=== PATIENT | female | born 1975 | race Hispanic/Latino ===

== ENCOUNTER 2017-07-10 15:43 | Emergency (ER) | payer MEDICAID ==
[2017-07-10] MEDS ORDERED: LIDOCAINE HCL 1% 20 ML VIAL ONE (16:21)
[2017-07-10 16:38] LABS: APPEARANCE,URINE Clear (CLEAR); BILIRUBIN,URINE Negative (NEGATIVE); COLOR,URINE Yellow (YELLOW); GLUCOSE, URINE (UA) Negative (NEGATIVE); KETONES,URINE Trace mg/dL (NEGATIVE); LEUKOCYTE ESTERASE ,URINE Small (NEGATIVE); NITRATE,URINE Negative (NEGATIVE); OCCULT BLOOD,URINE Negative (NEGATIVE); PH,URINE 7.5 (5.0-8.0); PROTEIN,URINE Negative (NEGATIVE)
[2017-07-10 16:39] LABS: HCG,QUAL RESULT NEGATIVE (NEGATIVE)
[2017-07-10] MEDS ORDERED: ACETAMINOPHEN-CODEINE 300/30MG TAB ONE (16:41)
[2017-07-10 16:48] LABS: BACTERIA,URINE None Seen /HPF (None Seen); RBC,URINE None Seen /HPF (0-1); WBC,URINE 0-1 /HPF (0-1)
== END 2017-07-10 16:56 | disposition home or self-care (01) ==
LOC: EDH 15:43
DX: N76.4 Abscess of vulva (principal); B37.9 Candidiasis, unspecified; G89.29 Other chronic pain; M54.9 Dorsalgia, unspecified
CPT/HCPCS: 56405; 81001; 81025

== ENCOUNTER 2018-02-24 16:03 | Emergency (ER) | payer MEDICAID ==
[2018-02-24] MEDS ORDERED: IBUPROFEN 400 MG TABLET ONE (17:30)
== END 2018-02-24 18:01 | disposition home or self-care (01) ==
LOC: EDH 16:03
DX: T25.12 Burn of first degree of foot (principal); T31.0 Burns involving less than 10% of body surface; X10.2XXD Contact with fats and cooking oils, subsequent encounter; Z87.891 Personal history of nicotine dependence

== ENCOUNTER 2018-03-05 14:20 | Emergency (ER) | payer MEDICAID ==
[2018-03-05] MEDS ORDERED: KETOROLAC TROMETHAMINE 30MG/ML ONE (15:51)
== END 2018-03-05 15:58 | disposition home or self-care (01) ==
LOC: EDH 14:20
DX: M25.552 Pain in left hip (principal); M54.2 Cervicalgia; R51 Headache; M54.5 Low back pain; G89.29 Other chronic pain; Z79.899 Other long term (current) drug therapy; V49.88XA Car occupant (driver) (passenger) injured in other specified transport accidents, initial encounter; Y93.89 Activity, other specified; Y92.89 Other specified places as the place of occurrence of the external cause; Y99.8 Other external cause status
CPT/HCPCS: 70450; 72125; 73502; 96372; 99284; J1885

== ENCOUNTER 2019-02-15 06:30 | Day surgery (SDC) | payer MEDICAID ==
[2019-02-14 12:02] VITALS: BP 103/63
[2019-02-14 12:07] LABS: BASOPHILS % (AUTO) 0.7 % (0.0-5.0); EOSINOPHILS % (AUTO) 1.6 % (0.0-8.0); HEMATOCRIT 41.9 % (36-48); LYMPHOCYTES % (AUTO) 23.3 % (21.0-51.0); MEAN CORPUSCULAR HEMOGLOBIN 30.8 pg (27.0-33.0); MEAN CORPUSCULAR HGB CONC 33.6 g/dL (32.0-36.0); MEAN CORPUSCULAR VOLUME 91.6 fL (79-99); MONOCYTES % (AUTO) 7.8 % (3.0-13.0); NEUTROPHILS % (AUTO) 66.6 % (40.0-77.0); NUCLEATED RED BLOOD CELLS 0.1 % (0.0-0.19); PLATELET COUNT (AUTO) 348 K/uL (130-400); RED BLOOD CELL COUNT(AUTO) 4.57 MIL/uL (4.00-5.50); RED CELL DISTRIBUTION WIDTH 13.6 % (11.0-15.5); WHITE BLOOD COUNT (AUTO) 6.7 K/uL (4.8-10.8)
[~2019-02-15] VITALS: Ht 151.1 cm; Wt 49.5 kg
[2019-02-15] VITALS (21 sets, daily range): BP systolic 101–144; BP diastolic 57–75
[~2019-02-15 06:30] MED LIST: CARB200T PO
[2019-02-15] MEDS: LACTATED RINGERS 1000ML 1,000 ML IV SCH ×2 (07:17→09:25)
[2019-02-15] MEDS ORDERED: ACETIC ACID 0.25% 1,000 ML IRRIG.SOLN ONE (07:21)
[2019-02-15] MEDS ORDERED: STRONG IODINE SOLN 14ML BOTTLE ONE (07:22)
[2019-02-15] MEDS ORDERED: LIDOCAINE HCL MPF 1% 5ML VIAL ONE (08:08)
[2019-02-15] MEDS ORDERED: SUCCINYLCHOLINE 200MG/10ML SYR ONE (08:08)
[2019-02-15] MEDS ORDERED: MIDAZOLAM HCL 1 MG/ML 2ML VIAL ONE (08:09)
[2019-02-15] MEDS ORDERED: PROPOFOL 10 MG/ML 20ML VIAL IV ONE (08:09)
[2019-02-15] MEDS ORDERED: MEPERIDINE-PF 25 MG/ML SYG ONE ×3 (08:10→10:26)
[2019-02-15] MEDS ORDERED: ROCURONIUM 10MG/1ML SYR 10 MG/ML ML ONE (08:10)
[2019-02-15] MEDS ORDERED: ONDANSETRON HCL 4 MG/2 ML VIAL ONE (08:42)
[2019-02-15] MEDS ORDERED: EPHEDRINE SULFATE 50 MG/ML AMPULE ONE (08:42)
[2019-02-15] MEDS ORDERED: MORPHINE SULFATE 4 MG/1ML SYG ONE (09:31)
== END 2019-02-15 12:36 | disposition home or self-care (01) ==
LOC: DAH 06:30
PROVIDERS: ATTEND Obstetrics & Gynecology
DX: R87.613 High grade squamous intraepithelial lesion on cytologic smear of cervix (HGSIL) (principal); K21.9 Gastro-esophageal reflux disease without esophagitis; Z90.49 Acquired absence of other specified parts of digestive tract; Z98.890 Other specified postprocedural states; Z79.899 Other long term (current) drug therapy; Z82.49 Family history of ischemic heart disease and other diseases of the circulatory system; Z82.5 Family history of asthma and other chronic lower respiratory diseases
CPT/HCPCS: 36415; 57522; 85025; 86850; 86900; 86901; 88307; A4215; A4221; A4222; A4223; A4606; A4663; A4930; A6260; J0330; J2175 ×3; J2250; J2270; J2405; J2704; J3490 ×2; J7120

== ENCOUNTER 2019-03-18 17:21 | Inpatient (IN) | payer MEDICAID ==
[~2019-03-18] VITALS: Ht 148.6 cm; Wt 48.3 kg
[2019-03-18] MEDS ORDERED: ONDANSETRON HCL 4 MG/2 ML VIAL ONE (17:46)
[2019-03-18] MEDS ORDERED: KETOROLAC TROMETHAMINE 30MG/ML ONE (17:46)
[2019-03-18] MEDS ORDERED: SODIUM CHLORIDE 0.9% 1000ML 1,000 ML IV ONE (17:47)
[2019-03-18 17:56] LABS: BASOPHILS % (AUTO) 0.2 % (0.0-5.0); EOSINOPHILS % (AUTO) 0.2 % (0.0-8.0); HEMATOCRIT 39.2 % (36-48); MEAN CORPUSCULAR HEMOGLOBIN 30.9 pg (27.0-33.0); MEAN CORPUSCULAR HGB CONC 34.3 g/dL (32.0-36.0); MEAN CORPUSCULAR VOLUME 90.1 fL (79-99); MONOCYTES % (AUTO) 4.6 % (3.0-13.0); PLATELET COUNT (AUTO) 296 K/uL (130-400); RED BLOOD CELL COUNT(AUTO) 4.35 MIL/uL (4.00-5.50); RED CELL DISTRIBUTION WIDTH 13.2 % (11.0-15.5); WHITE BLOOD COUNT (AUTO) 15.8 K/uL (4.8-10.8)
[2019-03-18 18:06] LABS: CREATININE 0.7 mg/dL (0.5-1.5); POTASSIUM 3.3 mmol/L (3.5-5.1)
[2019-03-18 18:07] LABS: INR 0.97 (0.85-1.15); PARTIAL THROMBOPLASTIN TIME 29.6 SEC (26.3-35.5); PROTHROMBIN TIME 10.2 SEC (9.6-11.6)
[2019-03-18 18:10] LABS: ALBUMIN 3.5 g/dL (3.5-5.0); BILIRUBIN,DIRECT 0.1 mg/dL (0.0-0.3); BILIRUBIN,TOTAL 0.4 mg/dL (0.2-1.0); TOTAL PROTEIN, SERUM 7.5 g/dL (6.0-8.3)
[2019-03-18 20:07] LABS: APPEARANCE,URINE Clear (CLEAR); BILIRUBIN,URINE Negative (NEGATIVE); COLOR,URINE Dark Yellow (YELLOW); GLUCOSE, URINE (UA) Negative (NEGATIVE); KETONES,URINE Negative (NEGATIVE); LEUKOCYTE ESTERASE ,URINE Trace (NEGATIVE); NITRATE,URINE Positive (NEGATIVE); OCCULT BLOOD,URINE Large (NEGATIVE); PH,URINE 6.5 (5.0-8.0); PROTEIN,URINE Negative (NEGATIVE); UROBILINOGEN,URINE 0.2 mg/dL (0.2-1.0)
[2019-03-18 20:08] LABS: HCG,QUAL RESULT NEGATIVE (NEGATIVE)
[2019-03-18 20:28] LABS: AMPHET/METH SCREEN,URINE NEGATIVE (NEGATIVE); BARBITURATE SCREEN, URINE NEGATIVE (NEGATIVE); BENZODIAZEPINES SCREEN,URINE NEGATIVE (NEGATIVE); CANNABINOID SCREEN,URINE NEGATIVE (NEGATIVE); COCAINE SCREEN,URINE POSITIVE (NEGATIVE); OPIATE SCREEN,URINE NEGATIVE (NEGATIVE); PHENCYCLIDINE SCREEN,URINE NEGATIVE (NEGATIVE)
[2019-03-18 20:43] LABS: BACTERIA,URINE Moderate /HPF (None Seen); MUCUS,URINE Few LPF (None Seen)
[2019-03-18] MEDS ORDERED: CEFTRIAXONE SODIUM 1 GM ONE (21:30)
[2019-03-18] MEDS ORDERED: ZOSYN 3.375GM+NS 50ML 50 ML IV ONE (23:31)
[2019-03-18] MEDS ORDERED: LACTATED RINGERS 1000ML 1,000 ML IV ONE (23:32)
[2019-03-19] VITALS (7 sets, daily range): BP systolic 101–128; BP diastolic 49–68
[2019-03-19] MEDS ORDERED: ONDANSETRON HCL 4 MG/2 ML VIAL IVP PRN (00:15)
[2019-03-19] MEDS ORDERED: PHARMACY COMMUNICATION MISC SCH (00:15)
[2019-03-19] MEDS: ZOSYN 3.375GM+NS 50ML 50 ML IV SCH ×3 (01:00→19:03)
[2019-03-19] MEDS ORDERED: CARB200T PO ×3 (02:37)
[2019-03-19] MEDS ORDERED: HYDROMORPHONE 1 MG/1 ML AMP ONE (02:55)
[2019-03-19 05:04] LABS: HEMATOCRIT 34.9 % (36-48); MEAN CORPUSCULAR HEMOGLOBIN 30.6 pg (27.0-33.0); MEAN CORPUSCULAR HGB CONC 33.8 g/dL (32.0-36.0); MEAN CORPUSCULAR VOLUME 90.6 fL (79-99); PLATELET COUNT (AUTO) 260 K/uL (130-400); RED BLOOD CELL COUNT(AUTO) 3.85 MIL/uL (4.00-5.50); RED CELL DISTRIBUTION WIDTH 13.2 % (11.0-15.5); WHITE BLOOD COUNT (AUTO) 13.4 K/uL (4.8-10.8)
[2019-03-19 05:17] LABS: ALBUMIN 2.9 g/dL (3.5-5.0); BILIRUBIN,TOTAL 0.4 mg/dL (0.2-1.0); CREATININE 0.7 mg/dL (0.5-1.5); MAGNESIUM 2.5 mg/dL (1.80-2.40); PHOSPHORUS 2.6 mg/dL (2.5-4.9); POTASSIUM 3.4 mmol/L (3.5-5.1); TOTAL PROTEIN, SERUM 6.6 g/dL (6.0-8.3)
[2019-03-19] MEDS: FAMOTIDINE/PF 20 MG/2 ML VIAL IV SCH ×2 (09:36→20:22)
[2019-03-19] MEDS: CARBAMAZEPINE 200 MG TABLET PO SCH ×3 (09:37→20:23)
[2019-03-19] MEDS: ENOXAPARIN SODIUM 40 MG/0.4 ML SYRINGE SQ SCH (09:39)
--- NOTE | 2019-03-19 10:24 | NUR ---
Dr Pollock here to see patient on new consult; he assessed her abdoman at bedside, pt c/o pain across lower abdoman; he recomended antibiotics at this time; i informed him of low K+ level of 3.3 and he gave me verbal order for replacement protocol.
[2019-03-19] MEDS: HYDROMORPHONE HCL 0.5 MG/0.5 ML ML IVP PRN ×2 (10:45→19:01)
[2019-03-19] MEDS: POTASSIUM CHLORIDE 20MEQ/100ML 100 ML IV PRN ×2 (13:59→18:52)
[2019-03-19] MEDS: LIDOCAINE HCL-MPF 1% 2ML VIAL IV PRN ×2 (14:03→18:53)
--- NOTE | 2019-03-19 16:13 | NUR ---
pt accidentally pulled out ng tube; i spoke to dr lance on the phone and he gave permission to leave out but keep npo
[2019-03-19] MEDS: LACTATED RINGERS 1000ML 1,000 ML IV SCH (22:31)
[2019-03-20] MEDS: ZOSYN 3.375GM+NS 50ML 50 ML IV SCH ×3 (00:24→17:11)
[2019-03-20] MEDS: HYDROMORPHONE HCL 0.5 MG/0.5 ML ML IVP PRN ×3 (00:35→21:32)
[2019-03-20 04:00] VITALS: BP 91/65
[2019-03-20 06:03] LABS: BASOPHILS % (AUTO) 0.7 % (0.0-5.0); EOSINOPHILS % (AUTO) 1.1 % (0.0-8.0); HEMATOCRIT 31.3 % (36-48); LYMPHOCYTES % (AUTO) 11.7 % (21.0-51.0); MEAN CORPUSCULAR HGB CONC 34.4 g/dL (32.0-36.0); MEAN CORPUSCULAR VOLUME 90.2 fL (79-99); MONOCYTES % (AUTO) 7.9 % (3.0-13.0); NEUTROPHILS % (AUTO) 78.6 % (40.0-77.0); PLATELET COUNT (AUTO) 252 K/uL (130-400); RED BLOOD CELL COUNT(AUTO) 3.47 MIL/uL (4.00-5.50); RED CELL DISTRIBUTION WIDTH 13.1 % (11.0-15.5); WHITE BLOOD COUNT (AUTO) 9.3 K/uL (4.8-10.8)
[2019-03-20] MEDS: LACTATED RINGERS 1000ML 1,000 ML IV SCH ×2 (06:15→17:10)
[2019-03-20 06:20] LABS: CREATININE 0.6 mg/dL (0.5-1.5); MAGNESIUM 1.9 mg/dL (1.80-2.40); PHOSPHORUS 2.6 mg/dL (2.5-4.9); POTASSIUM 3.7 mmol/L (3.5-5.1)
[2019-03-20 08:00] VITALS: BP 98/56
[2019-03-20] MEDS: ENOXAPARIN SODIUM 40 MG/0.4 ML SYRINGE SQ SCH (09:00)
[2019-03-20] MEDS: CARBAMAZEPINE 200 MG TABLET PO SCH ×3 (10:07→21:24)
[2019-03-20] MEDS: FAMOTIDINE/PF 20 MG/2 ML VIAL IV SCH ×2 (10:07→21:24)
[2019-03-20 11:00] VITALS: BP 103/55
--- NOTE | 2019-03-20 15:43 | NUR ---
cm note met with patient and states resides at home with ex daughter in law and with 15 yo daughter, indep with ambulation, has provider for adls. 3hrs daily. no dme. dc plan is back to home. states no dc needs. Addendum: 03/20/19 at 1545 by WARD BALDERAS CM Amended: Links added.
[2019-03-20 16:00] VITALS: BP 105/50
[2019-03-20 20:00] VITALS: BP 97/59
--- NOTE | 2019-03-20 21:24 | NUR ---
MEDS SHIFT ASSESSMENT DONE, PLEASE REFER TO CHART. PT COMPLAINTS OF PAINS ON HER LEFT SIDE OF THE ABDOMEN AND LEFT FLANK AREA. DUE MEDS ADMINISTERED, DILAUDID IV ADMINISTERED FOR PAINS. PT TOLERATED MEDS WELL. WARM PACKS APPLIED TO ABDOMEN. KEPT RESTED AND COMFORTABLE. WILL RE-ASSESS PT. Addendum: 03/20/19 at 2311 by RACHAEL PIKE RN RN Amended: Links added.
[2019-03-20 23:45] VITALS: BP 105/70
[2019-03-21] MEDS: ZOSYN 3.375GM+NS 50ML 50 ML IV SCH ×4 (00:24→23:37)
--- NOTE | 2019-03-21 02:00 | NUR ---
ROUNDS PT RESTING WELL, NO DISTRESS NOTED. KEPT UNDISTURBED FOR NOW. WILL MONITOR PT.
[2019-03-21 04:00] VITALS: BP 107/56
[2019-03-21] MEDS: LACTATED RINGERS 1000ML 1,000 ML IV SCH ×2 (04:58→23:38)
--- NOTE | 2019-03-21 05:00 | NUR ---
WARM PACKS AWAKENED PT WHEN [employer] ENTERS ROOM. DENIES NEED FOR ANY PAIN MEDS AT THIS TIME. ASK FOR WARM PACKS, PROVIDED AND ON LEFT SIDE OF THE ABDOMEN. KEPT RESTED. FOR MORE CARE.
[2019-03-21 05:54] LABS: BASOPHILS % (AUTO) 0.3 % (0.0-5.0); EOSINOPHILS % (AUTO) 1.9 % (0.0-8.0); HEMATOCRIT 30.9 % (36-48); LYMPHOCYTES % (AUTO) 12.7 % (21.0-51.0); MONOCYTES % (AUTO) 8.3 % (3.0-13.0); NEUTROPHILS % (AUTO) 76.8 % (40.0-77.0); PLATELET COUNT (AUTO) 269 K/uL (130-400); RED CELL DISTRIBUTION WIDTH 12.9 % (11.0-15.5); WHITE BLOOD COUNT (AUTO) 8.3 K/uL (4.8-10.8)
[2019-03-21 06:07] LABS: CREATININE 0.6 mg/dL (0.5-1.5); POTASSIUM 3.5 mmol/L (3.5-5.1)
[2019-03-21] MEDS ORDERED: POTASSIUM CHLORIDE 10% ELIXIR 20 MEQ/15 ML UDCUP PO PRN (06:30)
[2019-03-21] MEDS: POTASSIUM CHLORIDE 20 MEQ ERTAB PO PRN ×2 (06:33→11:32)
[2019-03-21] MEDS: HYDROMORPHONE HCL 0.5 MG/0.5 ML ML IVP PRN (06:33)
[2019-03-21 08:00] VITALS: BP 99/66
[2019-03-21] MEDS: FAMOTIDINE/PF 20 MG/2 ML VIAL IV SCH ×2 (09:22→20:32)
[2019-03-21] MEDS: CARBAMAZEPINE 200 MG TABLET PO SCH ×3 (09:23→20:32)
[2019-03-21] MEDS: ENOXAPARIN SODIUM 40 MG/0.4 ML SYRINGE SQ SCH (09:24)
[2019-03-21 11:53] VITALS: BP 111/72
[2019-03-21 16:00] VITALS: BP 107/69
[2019-03-21 19:00] VITALS: BP 108/63
--- NOTE | 2019-03-21 20:32 | NUR ---
MEDS PT ALREADY HAD HER SHOWER, TOLERATED ACTIVITY WELL. SHIFT ASSESSMENT DONE, PLEASE REFER TO CHART. PLACED BACK PT ON IV FLUIDS OF LR MAINTAINED AT 75CC/HR. DUE MEDS ADMINISTERED, TOLERATED WELL. KEPT ON CLEAR LIQUID DIET. WARM PACKS PROVIDED REQUESTED. KEPT RESTED AND COMFORTABLE. CALL LIGHT WITHIN REACH. FAMILY AT BEDSIDE. WILL MONITOR PT. Addendum: 03/21/19 at 2123 by RACHAEL PIKE RN RN Amended: Links added.
[2019-03-22] VITALS: BP 106/64
--- NOTE | 2019-03-22 02:00 | NUR ---
ROUNDS PT FAIRLY ASLEEP WITH RESPIRATIONS EVEN AND UNLABORED. NO NOTED DISTRESS. KEPT UNDISTURBED FOR NOW WILL MONITOR PT.
[2019-03-22 04:00] VITALS: BP 103/62
[2019-03-22] MEDS: HYDROMORPHONE HCL 0.5 MG/0.5 ML ML IVP PRN ×2 (04:17→10:09)
--- NOTE | 2019-03-22 04:17 | NUR ---
PAIN PT AWAKENED AND USED THE BATHROOM. COMPLAINTS OF PAINS AFTER MOVING AND CALLS FOR DILAUDID DOSE. MEDICATED PT. KEPT RESTED AND COMFORTABLE. WARM PACKS APPLIED TO LEFT ABDOMEN REQUESTED BY PT. WILL RE-ASSESS PT.
[2019-03-22 06:10] LABS: HEMATOCRIT 32.6 % (36-48); MEAN CORPUSCULAR HEMOGLOBIN 30.7 pg (27.0-33.0); MEAN CORPUSCULAR HGB CONC 33.5 g/dL (32.0-36.0); MEAN CORPUSCULAR VOLUME 91.8 fL (79-99); PLATELET COUNT (AUTO) 315 K/uL (130-400); RED BLOOD CELL COUNT(AUTO) 3.56 MIL/uL (4.00-5.50); RED CELL DISTRIBUTION WIDTH 12.7 % (11.0-15.5); WHITE BLOOD COUNT (AUTO) 6.1 K/uL (4.8-10.8)
[2019-03-22 06:29] LABS: CREATININE 0.6 mg/dL (0.5-1.5); MAGNESIUM 1.7 mg/dL (1.80-2.40); POTASSIUM 3.8 mmol/L (3.5-5.1)
[2019-03-22 08:00] VITALS: BP 105/64
[2019-03-22] MEDS: CARBAMAZEPINE 200 MG TABLET PO SCH ×3 (09:00→20:23)
[2019-03-22] MEDS: FAMOTIDINE/PF 20 MG/2 ML VIAL IV SCH ×2 (09:00→20:22)
[2019-03-22] MEDS: ZOSYN 3.375GM+NS 50ML 50 ML IV SCH ×2 (09:00→16:59)
[2019-03-22] MEDS: ENOXAPARIN SODIUM 40 MG/0.4 ML SYRINGE SQ SCH (09:01)
[2019-03-22 11:58] VITALS: BP 116/69
[2019-03-22] MEDS ORDERED: MAGNESIUM 2GM PREMIX 50ML 50 ML IV PRN (13:45)
[2019-03-22] MEDS: LACTATED RINGERS 1000ML 1,000 ML IV SCH ×2 (15:09→21:04)
[2019-03-22 16:00] VITALS: BP 116/67
[2019-03-22 19:00] VITALS: BP 108/67
--- NOTE | 2019-03-22 20:22 | NUR ---
MEDS SHIFT ASSESSMENT DONE, PLEASE REFER TO CHART. DUE MEDS ADMINISTERED, TOLERATED WELL. KEPT RESTED AND COMFORTABLE. CALL LIGHT WITHIN REACH. FAMILY AT BEDSIDE. WILL MONITOR PT. Addendum: 03/22/19 at 2350 by RACHAEL PIKE RN RN Amended: Links added.
--- NOTE | 2019-03-22 23:20 | NUR ---
WALK PT WALKING AROUND THE FLOOR ACCOMPANIED BY SPOUSE. TOLERATING ACTIVITY WELL.
[2019-03-23] VITALS (7 sets, daily range): BP systolic 94–113; BP diastolic 57–79
[2019-03-23] MEDS: ZOSYN 3.375GM+NS 50ML 50 ML IV SCH ×3 (00:23→17:59)
--- NOTE | 2019-03-23 02:00 | NUR ---
ROUNDS PT RESTING WELL, FAIRLY ASLEEP. NO DISTRESS NOTED. KEPT UNDISTURBED FOR NOW. WILL MONITOR PT. SPOUSE ASLEEP AT BEDSIDE.
[2019-03-23] MEDS: LACTATED RINGERS 1000ML 1,000 ML IV SCH ×2 (03:44→10:47)
--- NOTE | 2019-03-23 05:00 | NUR ---
ROUNDS PT RESTING WELL, STILL FAIRLY ASLEEP. NO COMPLAINTS OF ABDOMINAL DISCOMFORT THROUGHOUT THE NIGHT. KEPT COMFORTABLE. FOR MORE CARE.
[2019-03-23 05:31] LABS: HEMATOCRIT 31.2 % (36-48); MEAN CORPUSCULAR HEMOGLOBIN 30.8 pg (27.0-33.0); MEAN CORPUSCULAR HGB CONC 34.3 g/dL (32.0-36.0); MEAN CORPUSCULAR VOLUME 89.7 fL (79-99); PLATELET COUNT (AUTO) 346 K/uL (130-400); RED BLOOD CELL COUNT(AUTO) 3.48 MIL/uL (4.00-5.50); RED CELL DISTRIBUTION WIDTH 12.5 % (11.0-15.5); WHITE BLOOD COUNT (AUTO) 6.6 K/uL (4.8-10.8)
[2019-03-23] MEDS: ACETAMINOPHEN 325 MG TAB PO PRN ×2 (05:32→15:54)
[2019-03-23 05:43] LABS: CREATININE 0.7 mg/dL (0.5-1.5); POTASSIUM 4.1 mmol/L (3.5-5.1)
[2019-03-23] MEDS: FAMOTIDINE/PF 20 MG/2 ML VIAL IV SCH ×2 (10:38→20:08)
[2019-03-23] MEDS: CARBAMAZEPINE 200 MG TABLET PO SCH ×3 (10:39→20:09)
[2019-03-23] MEDS: ENOXAPARIN SODIUM 40 MG/0.4 ML SYRINGE SQ SCH (10:40)
--- NOTE | 2019-03-23 14:36 | NUR ---
DR YOU ROUNDED ON PATIENT ORDERS RECEIVED FOR LAB CBC AND BMP IN AM, TRAMADOL 50 MG BID , DISCONTINUE DILAUDID AND TYLENOL 650MG FOR PAIN 1-3
--- NOTE | 2019-03-23 15:09 | NUR ---
RD NOTIFICATION DX: SBO, ABDOMINAL PAIN. HX: SEIZURES, CHRONIC BACK PAIN. DIET: FULL LIQUIDS. PO INTAKE 75% AND HAS GOOD APPETITE PER PT. LBM: 03/22, DIARRHEA. PT CLAIMS TO BE HAVING ABDOMINAL PAIN, BUT IS IMPROVING. PT CLAIMS SHE HAS DIVERTICULITIS AND WOULD LIKE DIETARY RECOMMENDATIONS REGARDING THIS CONDITION. RD PROVIDED DIVERTICULITIS DIET AND NUTRITION EDUCATION. PT ASKED QUESTIONS, RD ANSWERED AND PT VERBALIZED UNDERSTANDING. PT WAS EDUCATED ON LOW FIBER FOODS AND HIGH FIBER FOODS. EDUCATION MATERIALS PROVIDED. RD RECOMMENDS CONTINUE CURRENT DIET. ADVANCE DIET TOLERATED TO LOW FIBER DIET. GRADUALLY INCREASE TO HIGH FIBER TOLERATED. RD PROVIDED DIVERTICULITIS DIET AND NUTRITION EDUCATION. RD WILL CONTINUE TO MONITOR AND FOLLOW UP NEEDED. Addendum: 03/23/19 at [address] Amended: Links added.
--- NOTE | 2019-03-23 15:10 | NUR ---
DIET EDUCATION PT CLAIMS TO BE HAVING ABDOMINAL PAIN, BUT IS IMPROVING. PT CLAIMS SHE HAS DIVERTICULITIS AND WOULD LIKE DIETARY RECOMMENDATIONS REGARDING THIS CONDITION. RD PROVIDED DIVERTICULITIS DIET AND NUTRITION EDUCATION. PT ASKED QUESTIONS, RD ANSWERED AND PT VERBALIZED UNDERSTANDING. PT WAS EDUCATED ON LOW FIBER FOODS AND HIGH FIBER FOODS. EDUCATION MATERIALS PROVIDED. Addendum: 03/23/19 at [address] Amended: Links added.
[2019-03-23 18:46] LABS: APPEARANCE,URINE Clear (CLEAR); BILIRUBIN,URINE Negative (NEGATIVE); COLOR,URINE Yellow (YELLOW); GLUCOSE, URINE (UA) Negative (NEGATIVE); KETONES,URINE Negative (NEGATIVE); LEUKOCYTE ESTERASE ,URINE Negative (NEGATIVE); NITRATE,URINE Negative (NEGATIVE); OCCULT BLOOD,URINE Negative (NEGATIVE); PH,URINE 7.5 (5.0-8.0); PROTEIN,URINE Negative (NEGATIVE)
[2019-03-23] MEDS: TRAMADOL HCL 50 MG TABLET PO SCH (20:09)
[2019-03-24] MEDS: ZOSYN 3.375GM+NS 50ML 50 ML IV SCH ×2 (01:45→08:12)
[2019-03-24 04:00] VITALS: BP 96/61
[2019-03-24 04:29] LABS: BASOPHILS % (AUTO) 1.3 % (0.0-5.0); EOSINOPHILS % (AUTO) 3.7 % (0.0-8.0); HEMATOCRIT 32.9 % (36-48); LYMPHOCYTES % (AUTO) 21.8 % (21.0-51.0); MEAN CORPUSCULAR HEMOGLOBIN 30.7 pg (27.0-33.0); MEAN CORPUSCULAR VOLUME 90.3 fL (79-99); MONOCYTES % (AUTO) 9.9 % (3.0-13.0); NEUTROPHILS % (AUTO) 63.3 % (40.0-77.0); PLATELET COUNT (AUTO) 378 K/uL (130-400); RED BLOOD CELL COUNT(AUTO) 3.64 MIL/uL (4.00-5.50); RED CELL DISTRIBUTION WIDTH 12.7 % (11.0-15.5); WHITE BLOOD COUNT (AUTO) 7.9 K/uL (4.8-10.8)
[2019-03-24 04:54] LABS: CREATININE 0.3 mg/dL (0.5-1.5); POTASSIUM 3.8 mmol/L (3.5-5.1)
[2019-03-24] MEDS: ACETAMINOPHEN 325 MG TAB PO PRN (05:58)
[2019-03-24 08:00] VITALS: BP 99/60
--- NOTE | 2019-03-24 08:00 | NUR ---
NOTE AAOX3. C/O ABDOMINAL PAIN. LOWER BACK PAIN. ANKLE PAIN. MEDICATED WITH PAIN MEDS AND OTHER MORNING MEDS. SHE IS HERE WITH DIVERTICULITIS. DR LOPEZ WAS CONSULTED AND HAS BEEN SEEING HER WHILE IN THE HOSPITAL AND HAS SIGNED OFF. PATIENT WILL PROBABLY GO HOME TODAY. AT HER SIDE.
[2019-03-24] MEDS: FAMOTIDINE/PF 20 MG/2 ML VIAL IV SCH (08:11)
[2019-03-24] MEDS: TRAMADOL HCL 50 MG TABLET PO SCH (08:11)
[2019-03-24] MEDS: CARBAMAZEPINE 200 MG TABLET PO SCH ×2 (08:11→13:54)
[2019-03-24] MEDS: ENOXAPARIN SODIUM 40 MG/0.4 ML SYRINGE SQ SCH (08:12)
[2019-03-24 11:00] VITALS: BP 110/64
[2019-03-24] MEDS ORDERED: LEVO500T2 PO (13:50)
[2019-03-24] MEDS ORDERED: LEVOFLOXACIN 500 MG TABLET ONE (13:52)
[2019-03-24] MEDS ORDERED: METRONIDAZOLE 500 MG TABLET ONE (13:52)
--- NOTE | 2019-03-24 14:00 | NUR ---
note DR YOU MADE ROUNDS AND WROTE ORDERS FOR DC HOME AFTER SHE RECEIVES FIRST DOSE OF PO ABX. WILL GIVE HER MEDS AND SHE WILL ARRANGE FOR TRANSPORT HOME. OTHERWISE SHE HAS BEEN STABLE.
--- NOTE | 2019-03-24 17:45 | NUR ---
DISCHARGE DISCHARGE INSTRUCTIONS GIVEN TO PATIENT AT THIS TIME. REFER TO DC SUMMARY FOR DETAILS.
== END 2019-03-24 18:04 | disposition home or self-care (01) | DRG 244 ==
LOC: EDH 17:21 → EDHIP 17:22 → 4CH 23:34
PROVIDERS: ADMIT Internal Medicine Nephrology; ATTEND Internal Medicine Nephrology
PROC: 0D9670Z Drainage of Stomach with Drainage Device, Via Natural or Artificial Opening (ICD-10-PCS; principal; 2019-03-20)
DX: K57.92 Diverticulitis of intestine, part unspecified, without perforation or abscess without bleeding (principal); K56.609 Unspecified intestinal obstruction, unspecified as to partial versus complete obstruction; R56.9 Unspecified convulsions; K56.7 Ileus, unspecified; E87.6 Hypokalemia; F14.10 Cocaine abuse, uncomplicated; D64.9 Anemia, unspecified; I10 Essential (primary) hypertension; G89.29 Other chronic pain; Z95.0 Presence of cardiac pacemaker
CPT/HCPCS: 36415; 74021; 74176; 80048; 80053; 80076; 80305; 81001; 81003; 81025; 83690; 83735; 84100; 85025; 85027; 85610; 85730; 87040; 87088; G0378; J0696; J1170; J1650; J1885; J2405; J2543; J3475; J3480; J3490; J7030; J7120

== ENCOUNTER 2020-09-30 17:14 | Emergency (ER) | payer MEDICAID ==
[2020-09-30] MEDS ORDERED: BUPIVACAINE/PF 0.5% 30ML VIAL ONE (17:32)
[2020-09-30 17:33] LABS: APPEARANCE,URINE Clear (CLEAR); BILIRUBIN,URINE Negative (NEGATIVE); COLOR,URINE Yellow (YELLOW); GLUCOSE, URINE (UA) Negative (NEGATIVE); KETONES,URINE Trace mg/dL (NEGATIVE); LEUKOCYTE ESTERASE ,URINE Negative (NEGATIVE); NITRATE,URINE Negative (NEGATIVE); OCCULT BLOOD,URINE Small (NEGATIVE); PROTEIN,URINE Negative (NEGATIVE)
[2020-09-30 17:35] LABS: HCG,QUAL RESULT NEGATIVE (NEGATIVE)
[2020-09-30 17:45] LABS: BACTERIA,URINE Few /HPF (None Seen); MUCUS,URINE Few LPF (None Seen); SQUAMOUS EPITHELIAL CELL,UR Few /HPF (0-2)
[2020-09-30] MEDS ORDERED: TRIAMCINOLONE ACETONIDE 40 MG/ML 1ML VIAL IM SCH (17:45)
== END 2020-09-30 18:40 | disposition home or self-care (01) ==
LOC: EDH 17:14
DX: S39.012A Strain of muscle, fascia and tendon of lower back, initial encounter (principal); R35.0 Frequency of micturition; G89.29 Other chronic pain; Z79.899 Other long term (current) drug therapy; X58.XXXA Exposure to other specified factors, initial encounter; Y93.89 Activity, other specified; Y92.89 Other specified places as the place of occurrence of the external cause; Y99.8 Other external cause status
CPT/HCPCS: 20552; 81001; 81025; 99284; J3301; J3490; 96372

== ENCOUNTER 2021-09-30 01:32 | Emergency (ER) | payer MEDICAID ==
[~2021-09-30] VITALS: Ht 152.4 cm; Wt 50.8 kg
[2021-09-30 01:57] LABS: BASOPHILS % (AUTO) 1.4 % (0.0-5.0); EOSINOPHILS % (AUTO) 2.5 % (0.0-8.0); HEMATOCRIT 40.3 % (36-48); MEAN CORPUSCULAR HEMOGLOBIN 29.8 pg (27.0-33.0); MEAN CORPUSCULAR HGB CONC 33.7 g/dL (32.0-36.0); MEAN CORPUSCULAR VOLUME 88.4 fL (79-99); NEUTROPHILS % (AUTO) 52.8 % (40.0-77.0); PLATELET COUNT (AUTO) 321 K/uL (130-400); RED BLOOD CELL COUNT(AUTO) 4.56 MIL/uL (4.00-5.50); RED CELL DISTRIBUTION WIDTH 12.8 % (11.0-15.5)
[2021-09-30 02:01] LABS: APPEARANCE,URINE Clear (CLEAR); BILIRUBIN,URINE Negative (NEGATIVE); COLOR,URINE Yellow (YELLOW); GLUCOSE, URINE (UA) Negative (NEGATIVE); KETONES,URINE Negative (NEGATIVE); LEUKOCYTE ESTERASE ,URINE Trace (NEGATIVE); NITRATE,URINE Negative (NEGATIVE); OCCULT BLOOD,URINE Negative (NEGATIVE); PROTEIN,URINE Negative (NEGATIVE); UROBILINOGEN,URINE 0.2 mg/dL (0.2-1.0)
[2021-09-30 02:12] LABS: CREATININE 0.5 mg/dL (0.5-1.5); POTASSIUM 3.7 mmol/L (3.5-5.1)
[2021-09-30 02:13] LABS: BACTERIA,URINE Few /HPF (None Seen); RBC,URINE None Seen /HPF (0-1); SQUAMOUS EPITHELIAL CELL,UR Moderate /HPF (0-2); WBC,URINE 0-1 /HPF (0-1)
[2021-09-30 02:17] LABS: ALBUMIN 3.8 g/dL (3.5-5.0); BILIRUBIN,TOTAL 0.1 mg/dL (0.2-1.0); TOTAL PROTEIN, SERUM 6.9 g/dL (6.0-8.3)
[2021-09-30] MEDS ORDERED: ORPHENADRINE CITRATE 30 MG/ML ML IVP ONE (03:30)
[2021-09-30] MEDS ORDERED: KETOROLAC 15MG/ML VIAL (15MG/ML) IV ONE (03:30)
[2021-09-30] MEDS ORDERED: CYCL10TA16 PO (05:07)
[2021-09-30] MEDS ORDERED: CELE200 PO (05:07)
[2021-09-30 05:09] VITALS: BP 117/84
== END 2021-09-30 05:57 | disposition home or self-care (01) ==
LOC: EDH 01:32
DX: M54.6 Pain in thoracic spine (principal); Z79.899 Other long term (current) drug therapy
CPT/HCPCS: 36415; 71045; 80053; 81001; 84484; 85025; 85378; 93005; 96374; 96375; 99285; J1885; J2360

== ENCOUNTER 2022-02-27 07:51 | Emergency (ER) | payer MEDICAID ==
[~2022-02-27 07:51] MED LIST changes: +CELE200 PO; +CYCL10TA16 PO
[2022-02-27 08:36] LABS: BASOPHILS % (AUTO) 0.6 % (0.0-5.0); EOSINOPHILS % (AUTO) 0.6 % (0.0-8.0); HEMATOCRIT 37.6 % (36-48); LYMPHOCYTES % (AUTO) 14.9 % (21.0-51.0); MEAN CORPUSCULAR VOLUME 85.3 fL (79-99); MONOCYTES % (AUTO) 7.1 % (3.0-13.0); NEUTROPHILS % (AUTO) 76.5 % (40.0-77.0); PLATELET COUNT (AUTO) 314 K/uL (130-400); RED BLOOD CELL COUNT(AUTO) 4.41 MIL/uL (4.00-5.50); RED CELL DISTRIBUTION WIDTH 12.7 % (11.0-15.5); WHITE BLOOD COUNT (AUTO) 11.3 K/uL (4.8-10.8)
[2022-02-27 08:42] LABS: CRP QUANTITATIVE 2.5 mg/L (0.00-9.0)
[2022-02-27 08:43] LABS: CREATININE 0.7 mg/dL (0.5-1.5); POTASSIUM 3.8 mmol/L (3.5-5.1)
[2022-02-27 08:48] LABS: ALBUMIN 3.8 g/dL (3.5-5.0); TOTAL PROTEIN, SERUM 7.3 g/dL (6.0-8.3)
[2022-02-27 08:52] LABS: APPEARANCE,URINE CLEAR (CLEAR); BILIRUBIN,URINE NEGATIVE (NEGATIVE); COLOR,URINE YELLOW (YELLOW); GLUCOSE, URINE (UA) NEGATIVE (NEGATIVE); KETONES,URINE NEGATIVE (NEGATIVE); LEUKOCYTE ESTERASE ,URINE NEGATIVE Leu/uL (NEGATIVE); NITRATE,URINE NEGATIVE (NEGATIVE); OCCULT BLOOD,URINE NEGATIVE (NEGATIVE); PROTEIN,URINE NEGATIVE (NEGATIVE); UROBILINOGEN,URINE 0.2 mg/dL (0.2-1.0)
[2022-02-27] MEDS ORDERED: KETOROLAC 30MG VIAL (30MG/ML) IVP ONE (10:00)
[2022-02-27] MEDS ORDERED: DICL50TA7 PO (12:17)
[2022-02-27 13:13] VITALS: BP 109/78
== END 2022-02-27 13:15 | disposition home or self-care (01) ==
LOC: EDH 07:51
DX: M71.21 Synovial cyst of popliteal space [Baker], right knee (principal); Z79.899 Other long term (current) drug therapy
CPT/HCPCS: 99285; 96374; 80156; 83735; 80053; 85025; 83605; 86140; 81003; 36415; 73562; 76882; J1885

== ENCOUNTER 2022-03-10 12:01 | Emergency (ER) | payer MEDICAID ==
[~2022-03-10 12:01] MED LIST changes: +DICL50TA7 PO
[2022-03-10 12:38] LABS: BASOPHILS % (AUTO) 0.9 % (0.0-5.0); EOSINOPHILS % (AUTO) 1.5 % (0.0-8.0); HEMATOCRIT 37.2 % (36-48); LYMPHOCYTES % (AUTO) 19.1 % (21.0-51.0); MEAN CORPUSCULAR HEMOGLOBIN 29.3 pg (27.0-33.0); MEAN CORPUSCULAR HGB CONC 34.1 g/dL (32.0-36.0); MEAN CORPUSCULAR VOLUME 85.7 fL (79-99); MONOCYTES % (AUTO) 7.4 % (3.0-13.0); NEUTROPHILS % (AUTO) 70.7 % (40.0-77.0); PLATELET COUNT (AUTO) 344 K/uL (130-400); RED BLOOD CELL COUNT(AUTO) 4.34 MIL/uL (4.00-5.50); RED CELL DISTRIBUTION WIDTH 12.6 % (11.0-15.5); WHITE BLOOD COUNT (AUTO) 9.6 K/uL (4.8-10.8)
[2022-03-10 12:45] LABS: APPEARANCE,URINE CLEAR (CLEAR); BILIRUBIN,URINE NEGATIVE (NEGATIVE); COLOR,URINE LIGHT-YELLOW (YELLOW); GLUCOSE, URINE (UA) NEGATIVE (NEGATIVE); KETONES,URINE NEGATIVE (NEGATIVE); LEUKOCYTE ESTERASE ,URINE 500 Leu/uL (NEGATIVE); NITRATE,URINE NEGATIVE (NEGATIVE); OCCULT BLOOD,URINE NEGATIVE (NEGATIVE); PH,URINE 5.5 (5.0-8.0); PROTEIN,URINE NEGATIVE (NEGATIVE); UROBILINOGEN,URINE 0.2 mg/dL (0.2-1.0)
[2022-03-10 12:46] LABS: HCG,QUALITATIVE URINE NEGATIVE (NEGATIVE)
[2022-03-10 12:50] LABS: CREATININE 0.6 mg/dL (0.5-1.5); POTASSIUM 3.9 mmol/L (3.5-5.1)
[2022-03-10 12:50] LABS: BACTERIA,URINE RARE /HPF (None Seen); MUCUS,URINE RARE LPF (None Seen); SQUAMOUS EPITHELIAL CELL,UR RARE /HPF (0-2)
[2022-03-10 12:55] LABS: ALBUMIN 3.6 g/dL (3.5-5.0); TOTAL PROTEIN, SERUM 7.3 g/dL (6.0-8.3)
[2022-03-10] MEDS ORDERED: ONDANSETRON 4MG INJ IVP ONE (13:00)
[2022-03-10] MEDS ORDERED: FAMOTIDINE 20MG VIAL IV ONE (13:00)
[2022-03-10] MEDS ORDERED: 0.9%NACL 1000ML 1,000 ML IV SCH (13:00)
[2022-03-10] MEDS ORDERED: KETOROLAC 30MG VIAL (30MG/ML) IVP ONE (13:00)
[2022-03-10] MEDS ORDERED: DiphenhydrAMINE HCL 50 MG/ML VIAL IV ONE (13:00)
[2022-03-10] MEDS ORDERED: IOHEXOL 350 MG/ML 100ML INFUS..BTL IV ONE (15:55)
[2022-03-10 16:56] VITALS: BP 97/64
[2022-03-10] MEDS ORDERED: LINA145C PO (17:57)
[2022-03-10] MEDS ORDERED: AMOX-427 PO (17:57)
== END 2022-03-10 18:03 | disposition home or self-care (01) ==
LOC: EDH 12:01
DX: K57.32 Diverticulitis of large intestine without perforation or abscess without bleeding (principal); N39.0 Urinary tract infection, site not specified; K59.00 Constipation, unspecified; Z79.1 Long term (current) use of non-steroidal anti-inflammatories (NSAID)
CPT/HCPCS: 99284; 74176; 96374; 96375; 96361; 80053; 83690; 85025; 87088; 81001; 81025; 36415; J1200; J7030; J2405; J1885; Q9967; S0028; J3490

== ENCOUNTER 2022-05-03 00:09 | Emergency (ER) | payer MEDICAID ==
[~2022-05-03] VITALS: Ht 121.9 cm; Wt 52.6 kg
[~2022-05-03 00:09] MED LIST changes: +AMOX-427 PO; +LINA145C PO
[2022-05-03 01:18] VITALS: BP 112/62
[2022-05-03] MEDS ORDERED: TOBR5DRO14 OP (01:54)
== END 2022-05-03 02:02 | disposition home or self-care (01) ==
LOC: EDH 00:09
DX: H10.9 Unspecified conjunctivitis (principal); Z90.49 Acquired absence of other specified parts of digestive tract; Z98.890 Other specified postprocedural states; Z79.899 Other long term (current) drug therapy

== ENCOUNTER 2022-05-15 17:14 | Emergency (ER) | payer MEDICAID ==
[~2022-05-15] VITALS: Ht 149.9 cm; Wt 52.6 kg
[~2022-05-15 17:14] MED LIST changes: +TOBR5DRO14 OP
[2022-05-15 17:30] VITALS: BP 126/81
[2022-05-15 17:44] LABS: BASOPHILS % (AUTO) 0.8 % (0.0-5.0); EOSINOPHILS % (AUTO) 1.3 % (0.0-8.0); HEMATOCRIT 39.2 % (36-48); MEAN CORPUSCULAR HEMOGLOBIN 28.3 pg (27.0-33.0); MEAN CORPUSCULAR HGB CONC 33.2 g/dL (32.0-36.0); MEAN CORPUSCULAR VOLUME 85.4 fL (79-99); MONOCYTES % (AUTO) 6.4 % (3.0-13.0); NEUTROPHILS % (AUTO) 69.1 % (40.0-77.0); PLATELET COUNT (AUTO) 267 K/uL (130-400); RED BLOOD CELL COUNT(AUTO) 4.59 MIL/uL (4.00-5.50); RED CELL DISTRIBUTION WIDTH 13.2 % (11.0-15.5); WHITE BLOOD COUNT (AUTO) 8.3 K/uL (4.8-10.8)
[2022-05-15 17:57] LABS: APPEARANCE,URINE CLEAR (CLEAR); BILIRUBIN,URINE NEGATIVE (NEGATIVE); COLOR,URINE COLORLESS (YELLOW); GLUCOSE, URINE (UA) NEGATIVE (NEGATIVE); KETONES,URINE 5 mg/dL (NEGATIVE); LEUKOCYTE ESTERASE ,URINE NEGATIVE Leu/uL (NEGATIVE); NITRATE,URINE NEGATIVE (NEGATIVE); OCCULT BLOOD,URINE NEGATIVE (NEGATIVE); PH,URINE 7.5 (5.0-8.0); PROTEIN,URINE NEGATIVE (NEGATIVE); UROBILINOGEN,URINE 0.2 mg/dL (0.2-1.0)
[2022-05-15 18:01] LABS: HCG,QUALITATIVE URINE NEGATIVE (NEGATIVE)
[2022-05-15 18:03] LABS: CREATININE 0.6 mg/dL (0.5-1.5); POTASSIUM 3.5 mmol/L (3.5-5.1)
[2022-05-15 18:04] LABS: AMPHET/METH SCREEN,URINE NEGATIVE (NEGATIVE); BARBITURATE SCREEN, URINE NEGATIVE (NEGATIVE); BENZODIAZEPINES SCREEN,URINE NEGATIVE (NEGATIVE); CANNABINOID SCREEN,URINE NEGATIVE (NEGATIVE); COCAINE SCREEN,URINE POSITIVE (NEGATIVE); OPIATE SCREEN,URINE NEGATIVE (NEGATIVE); PHENCYCLIDINE SCREEN,URINE NEGATIVE (NEGATIVE)
[2022-05-15 18:06] LABS: ALBUMIN 3.8 g/dL (3.5-5.0); TOTAL PROTEIN, SERUM 7.3 g/dL (6.0-8.3)
[2022-05-15] MEDS ORDERED: ONDA4TAB10 PO (18:29)
[2022-05-15] MEDS ORDERED: ONDANSETRON 4MG INJ IVP ONE (18:30)
== END 2022-05-15 19:10 | disposition home or self-care (01) ==
LOC: EDH 17:14
DX: R11.0 Nausea (principal); T42.6X5A Adverse effect of other antiepileptic and sedative-hypnotic drugs, initial encounter; Y92.89 Other specified places as the place of occurrence of the external cause; Z90.49 Acquired absence of other specified parts of digestive tract
CPT/HCPCS: 99283; 96374; 82150; 80053; 80305; 83690; 85025; 81003; 81025; 36415; J2405

== ENCOUNTER 2022-11-27 22:48 | Emergency (ER) | payer MEDICAID ==
[~2022-11-27] VITALS: Ht 152.4 cm; Wt 57.2 kg
[~2022-11-27 22:48] MED LIST changes: +ONDA4TAB10 PO
[2022-11-27 23:43] LABS: BASOPHILS % (AUTO) 0.5 % (0.0-5.0); EOSINOPHILS % (AUTO) 1.3 % (0.0-8.0); HEMATOCRIT 36.1 % (36-48); LYMPHOCYTES % (AUTO) 14.8 % (21.0-51.0); MEAN CORPUSCULAR HEMOGLOBIN 29.4 pg (27.0-33.0); MEAN CORPUSCULAR HGB CONC 33.5 g/dL (32.0-36.0); MEAN CORPUSCULAR VOLUME 87.6 fL (79-99); MONOCYTES % (AUTO) 7.3 % (3.0-13.0); NEUTROPHILS % (AUTO) 75.7 % (40.0-77.0); PLATELET COUNT (AUTO) 258 K/uL (130-400); RED BLOOD CELL COUNT(AUTO) 4.12 MIL/uL (4.00-5.50); RED CELL DISTRIBUTION WIDTH 13.1 % (11.0-15.5); WHITE BLOOD COUNT (AUTO) 8.2 K/uL (4.8-10.8)
[2022-11-27 23:45] LABS: APPEARANCE,URINE CLEAR (CLEAR); BILIRUBIN,URINE NEGATIVE (NEGATIVE); COLOR,URINE YELLOW (YELLOW); GLUCOSE, URINE (UA) NEGATIVE (NEGATIVE); KETONES,URINE 10 mg/dL (NEGATIVE); LEUKOCYTE ESTERASE ,URINE 75 Leu/uL (NEGATIVE); NITRATE,URINE NEGATIVE (NEGATIVE); OCCULT BLOOD,URINE NEGATIVE (NEGATIVE); PH,URINE 5.5 (5.0-8.0); PROTEIN,URINE 10 mg/dL (NEGATIVE); UROBILINOGEN,URINE 0.2 mg/dL (0.2-1.0)
[2022-11-27 23:54] LABS: MUCUS,URINE RARE LPF (None Seen); SQUAMOUS EPITHELIAL CELL,UR RARE /HPF (0-2)
[2022-11-27 23:56] LABS: CREATININE 0.6 mg/dL (0.5-1.5); POTASSIUM 3.1 mmol/L (3.5-5.1)
[2022-11-28 00:03] LABS: ALBUMIN 3.4 g/dL (3.5-5.0); TOTAL PROTEIN, SERUM 6.7 g/dL (6.0-8.3)
[2022-11-28 01:33] VITALS: BP 112/68
== END 2022-11-28 01:33 | disposition home or self-care (01) ==
LOC: EDH 22:48
DX: G40.209 Localization-related (focal) (partial) symptomatic epilepsy and epileptic syndromes with complex partial seizures, not intractable, without status epilepticus (principal)
CPT/HCPCS: 36415; 70450; 80053; 81001; 81025; 85025; 87088

== ENCOUNTER 2022-12-13 14:47 | Emergency (ER) | payer MEDICAID ==
[~2022-12-13] VITALS: Ht 152.4 cm; Wt 53.5 kg
[2022-12-13 14:52] VITALS: BP 99/63
== END 2022-12-13 17:59 | disposition left against medical advice (07) ==
LOC: EDH 14:47
DX: M79.604 Pain in right leg (principal); Z53.21 Procedure and treatment not carried out due to patient leaving prior to being seen by health care provider
CPT/HCPCS: 81025; 99281

== ENCOUNTER 2023-01-05 00:33 | Emergency (ER) | payer MEDICAID | END 2023-01-05 02:37 | disposition home or self-care (01) | LOC: EDH 00:33 | DX: M79.644 Pain in right finger(s) (principal); Z53.21 Procedure and treatment not carried out due to patient leaving prior to being seen by health care provider | CPT/HCPCS: 73140; 99281 ==

== ENCOUNTER 2023-06-15 16:34 | Emergency (ER) | payer MEDICAID ==
[~2023-06-15] VITALS: Ht 152.4 cm; Wt 56.2 kg
[2023-06-15] MEDS ORDERED: 0.9%NACL 1000ML 1,000 ML IV ONE (17:30)
[2023-06-15] MEDS ORDERED: FAMOTIDINE 20MG VIAL IV ONE (17:30)
[2023-06-15] MEDS ORDERED: MORPHINE 2 MG SYG IVP ONE (17:30)
[2023-06-15] MEDS ORDERED: ONDANSETRON 4MG INJ IVP ONE (17:30)
[2023-06-15 17:53] LABS: BASOPHILS # (AUTO) 0.07 K/uL (0.00-0.20); BASOPHILS % (AUTO) 0.6 % (0.0-5.0); EOSINOPHILS % (AUTO) 0.9 % (0.0-8.0); HEMATOCRIT 45.2 % (36-48); IMMATURE GRANULOCYTE ABSOLUTE 0.04 K/uL (0-1); LYMPHOCYTES # (AUTO) 1.6 K/uL (1.0-4.8); MEAN CORPUSCULAR HEMOGLOBIN 29.7 pg (27.0-33.0); MEAN CORPUSCULAR HGB CONC 33.6 g/dL (32.0-36.0); MEAN CORPUSCULAR VOLUME 88.5 fL (79-99); MONOCYTES # (AUTO) 0.8 K/uL (0.1-1.0); NEUTROPHILS # (AUTO) 8.7 K/uL (1.8-7.7); NEUTROPHILS % (AUTO) 77.1 % (40.0-77.0); PLATELET COUNT (AUTO) 314 K/uL (130-400); RED BLOOD CELL COUNT(AUTO) 5.11 MIL/uL (4.00-5.50); RED CELL DISTRIBUTION WIDTH 12.6 % (11.0-15.5); WHITE BLOOD COUNT (AUTO) 11.3 K/uL (4.8-10.8)
[2023-06-15 18:04] LABS: CREATININE 0.6 mg/dL (0.5-1.5); POTASSIUM 4.2 mmol/L (3.5-5.1)
[2023-06-15 18:09] LABS: ALBUMIN 4.1 g/dL (3.5-5.0); BILIRUBIN,TOTAL 0.2 mg/dL (0.2-1.0); TOTAL PROTEIN, SERUM 8.3 g/dL (6.0-8.3)
[2023-06-15] MEDS ORDERED: IOHEXOL 350 MG/ML 100ML INFUS..BTL IV ONE (18:38)
[2023-06-15 19:27] LABS: APPEARANCE,URINE CLEAR (CLEAR); BILIRUBIN,URINE NEGATIVE (NEGATIVE); COLOR,URINE COLORLESS (YELLOW); GLUCOSE, URINE (UA) NEGATIVE (NEGATIVE); KETONES,URINE NEGATIVE (NEGATIVE); LEUKOCYTE ESTERASE ,URINE NEGATIVE Leu/uL (NEGATIVE); NITRATE,URINE NEGATIVE (NEGATIVE); OCCULT BLOOD,URINE NEGATIVE (NEGATIVE); PROTEIN,URINE NEGATIVE (NEGATIVE); UROBILINOGEN,URINE 0.2 mg/dL (0.2-1.0)
[2023-06-15 19:28] LABS: ADD UA MICROSCOPIC YES
[2023-06-15 19:29] LABS: BACTERIA,URINE RARE /HPF (None Seen); WBC,URINE 0-1 /HPF (0-1)
[2023-06-15] MEDS ORDERED: DICY20TA2 PO (19:41)
[2023-06-15] MEDS ORDERED: OMEP40CA21 PO (19:41)
[2023-06-15] MEDS ORDERED: ONDA4TAB10 PO (19:41)
[2023-06-15 20:43] VITALS: BP 104/74; PULSE 89; RESP 18; O2SAT 99
== END 2023-06-15 20:56 | disposition home or self-care (01) ==
LOC: EDH 16:34
DX: K52.9 Noninfective gastroenteritis and colitis, unspecified (principal); E86.0 Dehydration
CPT/HCPCS: 99285; 74177; 96374; 96375; 96361; 80053; 83690; 85025; 81001; 36415; J2270; J7030; J2405; Q9967; S0028; J3490

== ENCOUNTER 2023-06-23 01:35 | Emergency (ER) | payer MEDICAID ==
[~2023-06-23] VITALS: Ht 149.9 cm; Wt 58.1 kg
[~2023-06-23 01:35] MED LIST changes: +DICY20TA2 PO; +OMEP40CA21 PO
[2023-06-23 01:39] VITALS: BP 109/70; PULSE 69; RESP 20
[2023-06-23 02:04] LABS: RAPID GROUP A STREP negative (NEGATIVE)
[2023-06-23 02:14] LABS: INFLUENZA TYPE A Negative For Type A (NEGATIVE); INFLUENZA TYPE B Negative For Type B (NEGATIVE)
[2023-06-23 02:53] LABS: SARS-CoV-2, RNA, NAAT NEGATIVE SARS CoV-2 (NEGATIVE)
== END 2023-06-23 05:17 | disposition left against medical advice (07) ==
LOC: EDH 01:35
DX: R05.9 Cough, unspecified (principal); M79.10 Myalgia, unspecified site; Z20.822 Contact with and (suspected) exposure to COVID-19; Z53.21 Procedure and treatment not carried out due to patient leaving prior to being seen by health care provider
CPT/HCPCS: 87635; 87804; 87880; 99281

== ENCOUNTER 2023-07-06 16:16 | Emergency (ER) | payer MEDICAID ==
[~2023-07-06] VITALS: Ht 149.9 cm; Wt 57.2 kg
[2023-07-06 16:43] VITALS: BP 109/78; PULSE 89; RESP 16
[2023-07-06 17:35] LABS: BASOPHILS # (AUTO) 0.06 K/uL (0.00-0.20); BASOPHILS % (AUTO) 0.9 % (0.0-5.0); EOSINOPHILS % (AUTO) 1.4 % (0.0-8.0); HEMATOCRIT 40.1 % (36-48); IMMATURE GRANULOCYTE ABSOLUTE 0.03 K/uL (0-1); LYMPHOCYTES # (AUTO) 2.3 K/uL (1.0-4.8); LYMPHOCYTES % (AUTO) 32.8 % (21.0-51.0); MEAN CORPUSCULAR HEMOGLOBIN 29.3 pg (27.0-33.0); MEAN CORPUSCULAR HGB CONC 32.9 g/dL (32.0-36.0); MEAN CORPUSCULAR VOLUME 89.1 fL (79-99); MONOCYTES # (AUTO) 0.6 K/uL (0.1-1.0); MONOCYTES % (AUTO) 8.6 % (3.0-13.0); NEUTROPHILS # (AUTO) 3.9 K/uL (1.8-7.7); NEUTROPHILS % (AUTO) 55.9 % (40.0-77.0); PLATELET COUNT (AUTO) 289 K/uL (130-400)
[2023-07-06 17:48] LABS: CARBON DIOXIDE 31 mmol/L (21-32); CHLORIDE 101 mmol/L (101-111); CREATININE 0.6 mg/dL (0.5-1.5); GLOMERULAR FILTR. RATE CALC 110 mL/min (>90); GLUCOSE,RANDOM 104 mg/dL (70-105); POTASSIUM 3.9 mmol/L (3.5-5.1); SODIUM SERUM 140 mmol/L (136-145); UREA NITROGEN, BLOOD 12 mg/dL (7-18)
[2023-07-06 17:53] LABS: ALANINE AMINOTRANSFERASE 23 U/L (12-78); ALBUMIN 3.6 g/dL (3.5-5.0); ASPARTATE AMINOTRANSFERASE 12 U/L (10-37); BILIRUBIN,TOTAL 0.2 mg/dL (0.2-1.0); TOTAL PROTEIN, SERUM 7.3 g/dL (6.0-8.3)
[2023-07-06 17:54] LABS: PHENYTOIN (DILANTIN) < 0.5 mcg/mL (10.0-20.0)
[2023-07-06] MEDS: 0.9%NACL 1000ML 1,000 ML IV ONE (23:35)
== END 2023-07-06 23:37 | disposition left against medical advice (07) ==
LOC: EDH 16:16
DX: R56.9 Unspecified convulsions (principal); Z79.899 Other long term (current) drug therapy; Z98.51 Tubal ligation status
CPT/HCPCS: 36415; 72220; 73522; 80053; 80185; 83605; 85025

== ENCOUNTER → 2023-07-08 | Outpatient (CLI) | payer MEDICAID | END | disposition home or self-care (01) | LOC: RAH 13:25 | PROVIDERS: ATTEND Internal Medicine | DX: R13.12 Dysphagia, oropharyngeal phase (principal); R63.30 Feeding difficulties, unspecified | CPT/HCPCS: 74230; 92611 ==

== ENCOUNTER 2023-12-22 10:57 | Emergency (ER) | payer MEDICAID ==
[~2023-12-22] VITALS: Ht 152.4 cm; Wt 56.2 kg
[~2023-12-22 10:57] MED LIST changes: +ONDA-243 PO; -ONDA4TAB10 PO
[2023-12-22 11:14] VITALS: BP 111/71; PULSE 87; RESP 20
[2023-12-22 14:36] LABS: APPEARANCE,URINE CLEAR (CLEAR); BILIRUBIN,URINE NEGATIVE (NEGATIVE); COLOR,URINE LIGHT-YELLOW (YELLOW); GLUCOSE, URINE (UA) NEGATIVE (NEGATIVE); KETONES,URINE NEGATIVE (NEGATIVE); LEUKOCYTE ESTERASE ,URINE NEGATIVE Leu/uL (NEGATIVE); NITRATE,URINE NEGATIVE (NEGATIVE); OCCULT BLOOD,URINE NEGATIVE (NEGATIVE); PH,URINE 6.5 (5.0-8.0); PROTEIN,URINE NEGATIVE (NEGATIVE); UROBILINOGEN,URINE 0.2 mg/dL (0.2-1.0)
[2023-12-22 14:38] LABS: ADD UA MICROSCOPIC YES
[2023-12-22 14:40] LABS: BACTERIA,URINE RARE /HPF (None Seen); RBC,URINE 0-1 /HPF (0-1); SQUAMOUS EPITHELIAL CELL,UR RARE /HPF (0-2); WBC,URINE 0-1 /HPF (0-1)
[2023-12-22] MEDS ORDERED: IBUP-2070 PO (14:58)
[2023-12-22] MEDS ORDERED: TRAM-530 PO (14:58)
[2023-12-22] MEDS: CYCLOBENZAPRINE HCL 10 MG TABLET PO ONE (15:11)
[2023-12-22] MEDS: HYDROCODONE/ACETAMINOPHEN 5/325 MG TAB PO ONE (15:11)
[2023-12-22] MEDS: KETOROLAC 30MG VIAL (30MG/ML) IM ONE (15:51)
== END 2023-12-22 16:36 | disposition home or self-care (01) ==
LOC: EDH 10:57
DX: S83.8X1A Sprain of other specified parts of right knee, initial encounter (principal); M71.21 Synovial cyst of popliteal space [Baker], right knee; G89.29 Other chronic pain; M54.50 Low back pain, unspecified; Z79.899 Other long term (current) drug therapy; Z98.51 Tubal ligation status; Z98.890 Other specified postprocedural states; X58.XXXA Exposure to other specified factors, initial encounter; Y93.89 Activity, other specified; Y92.89 Other specified places as the place of occurrence of the external cause; Y99.8 Other external cause status
CPT/HCPCS: 99283; 81001; 96372; J1885

== ENCOUNTER → 2024-12-21 | Outpatient (CLI) | payer MEDICAID ==
[~2024-12-21] MED LIST changes: +IBUP-2070 PO; +TRAM-543 PO
--- NOTE | 2024-12-21 16:17 | HMCIMG ---
EXAM: CT Maxillofacial without Intravenous Contrast. CLINICAL HISTORY: 49-year-old female with chronic sinusitis. TECHNIQUE: Axial computed tomography images of the face without intravenous contrast. Sagittal and coronal reformations performed. Dose reduction technique was used including one or more of the following: automated exposure control, adjustment of mA and kV according to patient size, and/or iterative reconstruction. CONTRAST: None. COMPARISON: None provided. FINDINGS: BONES: No acute fracture or focal osseous lesion. The mandible is intact. Mild degenerative changes in the upper cervical spine. SOFT TISSUES: The soft tissues are unremarkable. Mild nasal septal deviation to the right side. SINUSES: No evidence of chronic sinusitis. ORBITS: The orbits are normal. No retrobulbar hematoma or mass. IMPRESSION: 1. Mild nasal septal deviation to the right side. 2. Mild degenerative changes in the upper cervical spine. /[place]
== END | disposition home or self-care (01) ==
LOC: RAH 14:19
PROVIDERS: ATTEND Otolaryngology
DX: J34.2 Deviated nasal septum (principal); J32.8 Other chronic sinusitis; H69.83 Other specified disorders of Eustachian tube, bilateral; M47.812 Spondylosis without myelopathy or radiculopathy, cervical region
CPT/HCPCS: 70486